=== PATIENT | female | born 1965 | race Caucasian/White ===

== ENCOUNTER 2018-05-18 09:05 | Emergency (ER) | payer OTHER ==
[~2018-05-18] VITALS: Ht 154.9 cm; Wt 90.7 kg
[~2018-05-18 09:05] MED LIST: ADDERALL 10 MG10 MG; ALBUTEROL2.5 MG/31 INH; CIPROFLOXACIN500 M1 PO; CLARITIN10 MG PO; HYDROCODON-ACE1 EAC7 PO; HYDROCODONE-AP1 EAC6 PO; KEFLEX500 MG PO; LEVAQUIN 500 M500 MG PO; MEDROLDOSEPACK PO; NOHOMEMEDICATIONS; NORCO 5-325 TA1 EACH PO; PREDNISONE 20 M20 M1 PO; PREDNISONE 5 MG5 MG PO; PREDNISONE50 MG PO; PROAIR HFA8.5 GM INH; PROMETHAZINE-D120 ML PO; ROBAXIN500 MG PO; SPIRIVA INH; TESSALON PERLE100 MG PO; VENTOLIN HFA 1818 GM INH; ZPAK PO; ZYRTEC10 M2 PO
[2018-05-18 09:10] VITALS: BP 146/88
[2018-05-18] MEDS ORDERED: VENTOLIN HFA 1818 GM INH (09:17)
[2018-05-18] MEDS ORDERED: ZPAK PO (09:17)
[2018-05-18] MEDS ORDERED: PREDNISONE 20 M20 M1 PO (09:17)
== END 2018-05-18 09:23 | disposition home or self-care (01) ==
LOC: M.ERS 09:05
DX: J40 Bronchitis, not specified as acute or chronic (principal); F98.8 Other specified behavioral and emotional disorders with onset usually occurring in childhood and adolescence; Z88.0 Allergy status to penicillin; Z88.1 Allergy status to other antibiotic agents; Z87.442 Personal history of urinary calculi

== ENCOUNTER 2019-06-10 15:28 | Emergency (ER) | payer OTHER ==
[~2019-06-10] VITALS: Ht 154.9 cm; Wt 81.7 kg
[2019-06-10] MEDS ORDERED: ZPAK PO (16:11)
[2019-06-10] MEDS ORDERED: PREDNISONE 10 M10 MG PO (16:11)
[2019-06-10 16:25] VITALS: BP 132/89
== END 2019-06-10 16:26 | disposition home or self-care (01) ==
LOC: M.ERS 15:28
DX: J06.9 Acute upper respiratory infection, unspecified (principal); J45.909 Unspecified asthma, uncomplicated; Z87.442 Personal history of urinary calculi; Z88.0 Allergy status to penicillin; Z88.1 Allergy status to other antibiotic agents